=== PATIENT | female | born 1980 | race Caucasian/White ===

== ENCOUNTER 2018-10-17 06:40 | Day surgery (SDC) | payer OTHER ==
[~2018-10-17] VITALS: Ht 157.5 cm; Wt 120.1 kg
[2018-10-17] VITALS (17 sets, daily range): BP systolic 110–153; BP diastolic 56–88; PULSE 62–92; RESP 13–22; Ht 157.5 cm; Wt 120.1 kg
--- NOTE | 2018-10-17 06:55 | PREOPHP ---
DATE OF ADMISSION: 10/17/2018 HISTORY OF PRESENT ILLNESS: This 38-year-old patient is going to be admitted for diagnostic arthrosc opy of the left knee, examination under general anesthesia, ACL reconstruction and possible repair, p artial medial and lateral meniscectomy and possible repair, synovectomy, application of Smith kiko g. This 38-year-old patient with a height of 5 feet 3 inches, weighing 269 pounds, has been experiencing left knee pain for quite a while. Conservative treatment resulted in limited benefit to the patient and the patient has requested surgical intervention. PAST MEDICAL HISTORY: Asthma. SOCIAL HISTORY: Nonsmoker, social drinker. FAMILY HISTORY: Negative. PREVIOUS SURGERY: Hernia repair. ALLERGIES: NO HISTORY OF ALLERGY TO MEDICATION. MEDICATIONS: Medication in the past has been: 1. Baclofen. 2. [place]. 3. Sulindac. 4. Folic acid. 5. D3. 6. Bactrim DS and ibuprofen for postop given. REVIEW OF SYSTEMS: Limited to present illness. PHYSICAL EXAMINATION: SKIN: Within normal limit. EENT: PERRLA. HEAD AND NECK: Normocephalic. Trachea midline. Bilateral symmetrical carotid pulses. No mass. No bruit. No lymphadenopathy. CARDIOVASCULAR: Normal sinus rhythm. S1, S2 normal. No murmur. No JVD. No peripheral edema. LUNGS: Clear. ABDOMEN: Protuberant. No organomegaly. No mass. Bowel sounds present. GENITOURINARY AND RECTAL: Not done. Not pertinent to this admission. MUSCULOSKELETAL: Head and neck unremarkable. Upper extremities normal with normal neurovascular exa mination. Spine clear. Both lower extremities symmetrical and normal except for left knee. Left kn ee shows minimal muscle atrophy. Range of motion seems to be close to normal. However, there is lac k of full extension and lack of full flexion. There is tenderness over the medial tibiofemoral joint line and a positive Baljit's. IMAGING STUDY: MRI of the left knee has indicated ACL tear, location unknown. DIAGNOSES: 1. Increased mass index. 2. Left knee torn anterior cruciate ligament. 3. Probable torn medial and lateral menisci combined. 4. Reactive synovitis cannot be ruled out. TREATMENT PLAN: Alternatives, risks and benefits discussed. The patient understands the probability of meniscal tear with ACL is about 80% of the time. The patient understands possible complications from surgery such as infection, bleeding, nerve damage, vascular damage, possibility of deep venous t hrombosis, pulmonary embolism, hypersensitivity from medication, and that ideal result may not be obt ained depending on actual finding, known or unknown factor or factors. No guarantee is being made. The patient understands that postop, be on crutches for 6 weeks and brace for 3 months. The patient understands that immediately following surgery, needs to start doing range of motion exercises with t he knee. A formal H and P is supposed to be done by PCP. Dictated By: EMMA DE LUNA/ANGELO Conf#: [id number] DID#: [id number]
[2018-10-17] MEDS ORDERED: SEVOFLURANE 15 MIN ONE (07:00)
[2018-10-17] MEDS ORDERED: POLYMYXIN/BACITRACIN 1L IRRIG ONE (07:08)
[2018-10-17] MEDS ORDERED: morphine SULFATE/PF (10 MG/10 ML) INJ ONE (07:08)
--- NOTE | 2018-10-17 07:14 | PREAC ---
Date/Time of Note Date/Time of Note DATE: 10/17/18 TIME: 07:14 Anesthesia Eval and Record Evaluation Time Pre-Procedure Interview DATE: 10/17/18 TIME: 07:14 Age 38 Sex female NPO: 8 hrs Preoperative diagnosis Left knee ACL tear, meniscus tear, synovitis Planned procedure Left knee examination under anesthesia, ACL reconstruction , partial medial and lateral meniscectomy, synovectomy Past Medical History Past Medical History: Includes Pulm: Asthma GI: Morbid obesity Surgery & Anesthesia Issues No known issue Meds Anticoagulation: No Beta Hardy within 24 hr: No Reason Beta Hardy not given: Pt. not on B-Hardy No Active Prescriptions or Reported Meds Meds reviewed: Yes Allergies Coded Allergies: mushroom (Verified Allergy, Unknown, 10/17/18) Allergies Reviewed: Yes Labs/Studies Labs Reviewed: Reviewed by anesthesiologist test: Negative Pre-procedure Exam Airway: Adequate mouth opening Mallampati: Mallampati II Teeth: Normal Lung: Normal Heart: Normal ASA Physical Status ASA physical status: 3 Emergency: None Planned Anesthetic General/MAC: ETT, LMA Planned Pain Management Parenteral pain med Pre-operative Attestations Prior to commencing anesthesia and surgery, the patient was re-evaluated, there was verification of: *The patient's identity *The results of appropriate recent lab work and preoperative vital signs *The above evaluation not changing prior to induction *Anesthetic plan, risk benefits, alternative and complications discussed with patient/family; questions answered; patient/family understands, accepts and wishes to proceed. DOMINGA LEONARDO MD Oct 17, 2018 07:14
[2018-10-17] MEDS ORDERED: PROPOFOL 20 ML ONE (07:36)
[2018-10-17] MEDS ORDERED: CEFAZOLIN 1 GM INJ ONE (07:36)
[2018-10-17] MEDS ORDERED: LIDOCAINE 2% (SDV) 5 ML INJ ONE (07:36)
[2018-10-17] MEDS ORDERED: MEPERIDINE 100 MG INJ ONE (07:37)
[2018-10-17] MEDS ORDERED: METOCLOPRAMIDE 10 MG INJ ONE (07:37)
[2018-10-17] MEDS ORDERED: ONDANSETRON 4 MG INJ ONE (07:37)
[2018-10-17] MEDS ORDERED: EPINEPHrine 1 MG/ML 30 ML INJ IRR ONE (08:56)
[2018-10-17] MEDS ORDERED: MIDAZOLAM 1 MG/ML 2 ML INJ IV PRN (10:30)
[2018-10-17] MEDS ORDERED: OXYCODONE/ACETAMINOPHEN (5/325) TAB PO PRN ×2 (10:30)
[2018-10-17] MEDS ORDERED: LABETALOL HCL 20MG INJ IV PRN (10:30)
[2018-10-17] MEDS ORDERED: EPHEDrine SULFATE 50 MG/5 ML SYG IV PRN (10:30)
[2018-10-17] MEDS ORDERED: hydrALAzine 20 MG INJ IV PRN (10:30)
[2018-10-17] MEDS ORDERED: ONDANSETRON 4 MG INJ IV PRN (10:30)
[2018-10-17] MEDS ORDERED: METOCLOPRAMIDE 10 MG INJ IV PRN (10:30)
[2018-10-17] MEDS ORDERED: HYDROmorphONE 1 MG/5 ML IV SYRINGE IV PRN ×3 (10:30)
[2018-10-17] MEDS ORDERED: DIPHENHYDRAMINE 50 MG INJ IV PRN (10:30)
[2018-10-17] MEDS ORDERED: FENTAnyl 50 MCG/ML VIAL IV PRN ×3 (10:30)
[2018-10-17] MEDS ORDERED: MEPERIDINE 25 MG INJ IV PRN (10:30)
--- NOTE | 2018-10-17 10:47 | SIPON ---
Date/Time of Note Date/Time of Note DATE: 10/17/18 TIME: 10:41 Operative Report Preoperative Diagnosis Torn medial and lateral meniscus plus ACL tear left knee Postoperative Diagnosis The same Operation/Procedure Performed Diagnostic scope, EUA, Partial medial meniscotomy, repair of lateral meniscus , and ACL repair and application of Smith dressing. Surgeon Emma Gutierrez MD personalized living assistant None Anesthesia: general (..................................... ................................................................................................................................ ................................................................................................................................ ................................................................................................................................ .......................................) Estimated blood loss: 0 - 10 ml's (.............................. ................................................................................................................................ .......................................................) Transfusion Required none Specimen None Grafts/Implants none Complications none EMMA GUTIERREZ MD Oct 17, 2018 10:47
[2018-10-17] MEDS ORDERED: HYDROCODONE/APAP (5/325) TAB PO PRN ×2 (11:00)
--- NOTE | 2018-10-17 12:44 | PAC ---
Date/Time of Note Date/Time of Note DATE: 10/17/18 TIME: 12:43 Post-Anesthesia Notes Post-Anesthesia Note Last documented vital signs Vital Signs Date Temp Pulse Resp B/P (MAP) Pulse Ox O2 O2 Flow FiO2 Time Delivery Rate 10/17/18 98.1 78 18 132/80 96 11:55 (97) 10/17/18 Room Air 11:48 10/17/18 8.0 10:50 Activity: WNL Respiratory function: WNL Cardiovascular function: WNL Mental status: Baseline Pain reasonably controlled: Yes Hydration appropriate: Yes Nausea/Vomiting absent: Yes DOMINGA LEONARDO MD Oct 17, 2018 12:44
--- NOTE | 2018-10-17 14:42 | OPR ---
DATE OF OPERATION: 10/17/2018 PREOPERATIVE DIAGNOSIS: Torn medial and lateral meniscus and ACL tear of the left knee. POSTOPERATIVE DIAGNOSIS: Torn medial and lateral meniscus and ACL tear of the left knee. PROCEDURES: Diagnostic arthroscopy, examination under general anesthesia, partial medial meniscectom y, lateral meniscal repair, ACL repair of left knee and application of Smith dressing. ANESTHESIA: General. ANESTHESIOLOGIST: Kieran King MD BLEEDING: Minimal. COMPLICATIONS: None. OPERATIVE PROCEDURE IN DETAILS: The patient was transferred to the operating room and placed on the table in supine position. General anesthesia was induced. A 2 grams of Ancef was given IV. Tourniq uet was applied in proximal part of the left lower extremity and after regular prep and draping, land jackson were marked, 2 regular to anterior portal, 1 medial and 1 lateral to parapatellar tendon. Oper ative arthroscopy was commenced. Examination of suprapatellar pouch indicated normal finding. 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 Going to medial compartment, the meniscus was thinned out. This was small flap tear of the anterior head, which was trimmed by Arthrocare Bovie to stable margin. There is minimal synoviti s present which was taken care of by coagulation. ACL was disrupted proximally and from the femoral attachment, it was loose. The lateral meniscus shows some peripheral synovitis which was coagulated. The posterior horn was then stable and we could just pull it out to the middle of the tibial condyl e and also anterior part of the middle third and stable. Therefore using the FasT-Fix, meniscus was stabilized posteriorly and we used the meniscal mender set. Suture was put in the middle third and 1 suture in the anterior third to stabilize the meniscus and bleeding periphery. We switched now from the scope being in the medial portal through lateral portal again and we put 3 rows of 5 [place]'s s uture in the bundle of the ACL and notch was ____ medial side, lateral femoral condyle ____ position and SwiveLock 4.75 and after drilling and tapping, ACL was repaired and tightened and Baljit became negative. Knee ____ degrees with copious saline irrigation. Portal was closed with benzoin and Ster i-Strips and small incision which was made to bury the knots of the meniscal repair and the skin was also closed with benzoin and Steri-Strips. A 10 mg Duramorph mixed with 10 mL of injectable saline w as injected into the knee. Sterile Smith dressing was applied. Procedure was terminated. General a nesthesia was stopped. The patient was taken to recovery room in good and stable condition. Dictated By: EMMA DE LUNA/ANGELO Conf#: [id number] DID#: [id number]
== END 2018-10-17 13:05 | disposition home or self-care (01) ==
LOC: SDS 06:40
PROVIDERS: ATTEND Internal Medicine Endocrinology, Diabetes & Metabolism
DX: S83.242A Other tear of medial meniscus, current injury, left knee, initial encounter (principal); S83.282A Other tear of lateral meniscus, current injury, left knee, initial encounter; S83.512A Sprain of anterior cruciate ligament of left knee, initial encounter; X58.XXXA Exposure to other specified factors, initial encounter; Y93.89 Activity, other specified; Y92.89 Other specified places as the place of occurrence of the external cause; Y99.8 Other external cause status
CPT/HCPCS: 29880; 29888; J0171; J0690; J1170; J2175; J2274; J2405; J2765; J3010; Z7610